=== PATIENT | female | born 1950 | race Caucasian/White ===

== ENCOUNTER 2016-12-28 18:11 | Emergency (ER) | payer OTHER ==
[~2016-12-28] VITALS: Ht 172.7 cm; Wt 95.7 kg
[~2016-12-28 18:11] MED LIST: ANTIVERT12.5 MG PO; HYDROCHLOROTH12.5 M1 PO; NORVASC2.5 MG PO; OMEPRAZOLE20 M2 PO; PROZAC20 MG PO; SINGULAIR 10 MG10 M1 PO; ZOFRAN ODT4 MG PO
[2016-12-28] MEDS ORDERED: ENOXAPARIN100 MG/1 M SQ (19:32)
[2016-12-28 20:26] VITALS: BP 180/90
== END 2016-12-28 20:27 | disposition home or self-care (01) ==
LOC: ER 18:11
DX: I82.492 Acute embolism and thrombosis of other specified deep vein of left lower extremity (principal); D68.51 Activated protein C resistance; Z91.14 Patient's other noncompliance with medication regimen; J45.909 Unspecified asthma, uncomplicated; I10 Essential (primary) hypertension

== ENCOUNTER → 2017-01-30 | Outpatient (CLI) | payer OTHER ==
[~2017-01-30] MED LIST changes: +ENOXAPARIN100 MG/1 M SQ
[2017-01-30 08:41] LABS: PROTIME 10.7 Seconds (9.3-11.4)
== END | disposition home or self-care (01) ==
LOC: CAT 07:56
PROVIDERS: Otolaryngology Plastic Surgery within the Head & Neck
DX: K11.8 Other diseases of salivary glands (principal)

== ENCOUNTER → 2017-05-29 | Outpatient (CLI) | payer OTHER ==
[~2017-05-29] VITALS: Ht 170.2 cm; Wt 96.8 kg
[~2017-05-29] MED LIST changes: +AMITRIPTYLINE H25 M2 PO; +MEDROLDOSEPACK PO; +NEURONTIN 300300 M1 PO; +REQUIP0.5 MG PO; +TUMS PO; +TYLENOL EXTRA500 MG PO; +WELLBUTRIN SR150 MG PO; +XARELTO20 MG PO; +ZOLOFT50 MG PO
--- NOTE | ~2017-05-29 | HPC ---
[facility] [place] [address] PAIN MANAGEMENT CONSULTATION Name: ODIN BLACK Room #: REG GILMA Katarzyna#: [id number] Admission: 05/29/17 Attend Phys: Niranjan Nixon MD Discharge: Date of : 50 Report #: [id number] THIS REPORT FOR: //name// CC: Niranjan Kennedy MD DATE OF SERVICE: 05/29/2017 CHIEF COMPLAINT: Pain in the right low back area. FOLLOWUP HISTORY: The patient is a 67-year-old female who has been referred to the pain clinic for evaluation of back pain. She has been having pain and discomfort in the low back area over the last few months, which has worsened. It is in low back area and near the outside of her leg. She has some pain from the lateral thigh down to the lateral portion of her right knee. She has also had some "inside pain" in her inner thigh area. Note that the pain is made worse sometimes with lying down, walking and climbing stairs. She is not sure of anything that makes it better. She states that she has seen an orthopedic doctor and been evaluated with imaging. No significant pathology was found. She rates her pain as an 8/10. She notes that some of the pain radiates from her buttocks down to the posterior portion of her right thigh. Certain activities can be quite problematic. Denies any bowel or bladder dysfunction. Denies any trauma to her back. Denies any past surgery to the area. ALLERGIES: No known drug allergies. MEDICATIONS: Calcium 500 mg Tums chewable, Tylenol Extra Strength 500 mg q. 4 hours p.r.n., Norvasc 2.5 mg daily, Requip 0.5 mg at bedtime, gabapentin she takes 600 mg at bedtime, Xarelto 20 mg daily, Zoloft 30 mg, Wellbutrin SR 150 mg, hydrochlorothiazide 12.5 mg, and Singulair 10 mg. PAST MEDICAL HISTORY: Hypertension; arthritis; asthma; GERD/heart wei; depression; attention deficit disorder; hyperlipidemia; degenerative arthritis, lumbar, right ankle, bilateral knees; menopause; history of DVT, treated with warfarin; and obesity. FAMILY HISTORY: Father, heart disease. Mother, arthritis. Brother, history of bleeding disease. Sister, bleeding disease. Sister, arthritis. Mother, history of bleeding disease. Father, history of anesthetic complications. PAST SURGICAL HISTORY: Tonsillectomy in 1956; breast surgery, bilateral; right intra-articular hip injection with fluoro guidance 12/21/2016; ovarian cystectomy in 1984; knee arthroscopy in 2011; and torn meniscus repair in 2011. SOCIAL HISTORY: She is single, lives alone. No children. [place] [address] PAIN MANAGEMENT CONSULTATION Name: ODIN BLACK GREGORIO Room #: REG CLI [place]#: [id number] Admission: 05/29/17 Attend Phys: Niranjan Nixon MD Discharge: Date of : 50 Report #: [id number] Works for [employer]: turn off the lights. She is a former smoker. Drinks 1-3 alcoholic beverages per week. Tobacco use 1 pack per day, 25 year history, stopped in 1994. REVIEW OF SYSTEMS: Questionnaire. Fatigue/weakness, hearing loss, asthma, varicose veins, depression, and phlebitis. PHYSICAL EXAMINATION: Blood pressure 168/103, pulse 69, respiratory rate 16, room air saturation 98%. Height 5 feet 7 inches, weight 213 pounds. The patient has pain and discomfort in the right posterior superior iliac spine area. Palpation in this area does cause some increased pain and discomfort. The patient has some discomfort in the area of the right tensor fascia dayne area. Palpation in the area of the latissimus dorsi and gluteus reji near the posterior superior iliac spine area cause reproduction of the patient's discomfort. Examination of right hip on 10/06/2016 reveals frontal view obtained of the pelvis as well as frontal spot view of the right hip in the frog leg position. The bony structures were intact and there is no fracture or subluxation. There is sclerosis and mild spurring involving both hip joints. The soft issues are unremarkable. IMPRESSION: 1. No radiologic evidence of acute bony pathology involving the right hip. There are mild arthritic changes involving the hips. 2. Myofascial pain, right posterior superior iliac spine area near the gluteus reji and latissimus dorsi. 3. Asthma. 4. Hypertension. 5. Depression. 6. Attention deficit disorder. 7. Hyperlipidemia. 8. Gastroesophageal reflux disease. 9. Degenerative arthritis, right ankle, bilateral knees. 10. History of deep venous thrombosis, treated with warfarin now, anticoagulated using Xarelto. 11. The patient states that she has Factor V Leiden and is hypercoagulable. RECOMMENDATIONS: We discussed treatment options with the patient. We would proceed with an injection in the trigger point area in the right low back area. We have explained to the patient the need for discontinuing use of Xarelto. Again, we are in the area of the lower spine and should bleeding occur, this could cause some problems. We explained this to the patient that it is standard procedure to stop the Xarelto when injected in areas around the spine. She will follow up with her primary physician and possibly undergo use of Lovenox to bridge her when she stops use of Xarelto. We explained the possible complications of the procedure and the patient elects to proceed. When the patient has undergone appropriate anticoagulation therapy, she will return to [facility] [address] [place] [address] PAIN MANAGEMENT CONSULTATION Name: ODIN BLACK [facility] [id number] Admission: 05/29/17 Attend Phys: Niranjan Nixon MD Discharge: Date of : 50 Report #: [id number] the pain clinic for treatment. We would like to thank you for letting us participate in her care. We hope she continues to improve. <ELECTRONICALLY SIGNED> By: Niranjan Nixon MD 05/31/17 0837 [id number] 0233 Niranjan Nixon MD /DANIEL
[2017-05-29 09:07] VITALS: BP 168/103
== END ==
LOC: PAIN 07:03
DX: M17.0 Bilateral primary osteoarthritis of knee (principal); M19.90 Unspecified osteoarthritis, unspecified site; I10 Essential (primary) hypertension; E78.5 Hyperlipidemia, unspecified

== ENCOUNTER → 2017-06-28 | Outpatient (CLI) | payer OTHER ==
[~2017-06-28] VITALS: Ht 177.8 cm; Wt 95.9 kg
--- NOTE | ~2017-06-28 | HPC ---
[facility] [place] [address] PAIN MANAGEMENT CONSULTATION Name: ODIN BLACK Room #: REG GILMA Katarzyna#: [id number] Admission: 06/28/17 Attend Phys: Niranjan Nixon MD Discharge: Date of : 50 Report #: [id number] THIS REPORT FOR: //name// CC: Niranjan Kennedy DATE OF SERVICE: 06/28/2017 The patient is on a blood thinning mediation and we would like to have her off her medication for the least amount of time. FOLLOWUP COMPLAINT: "The pain in the middle of my back improved. Still having some pain in the buttocks and joint. My doctor told me it was my SI joint." FOLLOWUP HISTORY: The patient is a 67-year-old female who has been seen in the pain clinic because of pain and discomfort. At the last visit, she complained of pain and discomfort in the right posterior superior iliac spine area. A trigger point was noted. This area was injected with local anesthetic and steroid. She states that pain has resolved. She has a second pain in the low back area. She notes that there is pain and discomfort with certain movements. If she lowers her left leg to get out of bed, she notes pain and discomfort in the right mid portion of her back. She also has some pain and discomfort around the lateral portion of her leg with some pain down the lateral side to the level of knee. It does not go lower than the knee area. Notes some difficulty sleeping on her right side because of pain and discomfort in the hip area. PHYSICAL EXAMINATION: Blood pressure 144/69, pulse 60, respiratory rate 18, room air saturation 97%. Height 5 feet 10 inches, weight 211 pounds, BMI is 30. The patient has pain and discomfort with stress on the left SI joint. Positive for Jus's maneuver, increased pain with letting the right leg hanging in a dependent position as well as the left leg hanging in a dependent position. IMPRESSION: 1. Asthma. 2. Hypertension. 3. Depression. 4. Hyperlipidemia. 5. Gastroesophageal reflux. 6. Degenerative arthritis with right ankle pain and bilateral knee pain. 7. History of deep venous thrombosis, treated with warfarin; now using Xarelto. The patient states that she suffers from factor V Leiden and is hypercoagulable. [address] [address] PAIN MANAGEMENT CONSULTATION Name: ODIN BLACK GREGORIO Room #: REG [facility].#: [id number] Admission: 06/28/17 Attend Phys: Niranjan Nixon MD Discharge: Date of : 50 Report #: [id number] RECOMMENDATIONS: We discussed the treatment options with the patient. She will discontinue use of the Xarelto. She will then transition to Lovenox. She will follow up in the pain clinic at which time she will receive an SI joint injection for pain and discomfort secondary to SI joint dysfunction. Risks and benefits of the procedure were explained to the patient and she will follow up in the near future. We would like to thank you for letting us participate in her care. We hope she continues to improve. <ELECTRONICALLY SIGNED> By: Niranjan Nixon MD 07/04/17 0902 [id number] [id number] Niranjan Nixon MD /PMT
[2017-06-28 08:16] VITALS: BP 144/69
== END ==
LOC: PAIN 06:39
DX: M17.0 Bilateral primary osteoarthritis of knee (principal); M25.561 Pain in right knee; I10 Essential (primary) hypertension; E78.5 Hyperlipidemia, unspecified; J45.909 Unspecified asthma, uncomplicated; K21.9 Gastro-esophageal reflux disease without esophagitis; F32.9 Major depressive disorder, single episode, unspecified; Z86.718 Personal history of other venous thrombosis and embolism

== ENCOUNTER → 2017-08-09 | Outpatient (CLI) | payer OTHER ==
[~2017-08-09] VITALS: Ht 177.8 cm; Wt 96.9 kg
[~2017-08-09] MED LIST changes: +ENOXAPARIN100 MG/11 SUBQ
--- NOTE | ~2017-08-09 | HPC ---
[facility] [place] [address] PAIN MANAGEMENT CONSULTATION Name: ODIN BLACK Room #: REG GILMA Katarzyna#: [id number] Admission: 08/09/17 Attend Phys: Niranjan Nixon MD Discharge: Date of : 50 Report #: [id number] THIS REPORT FOR: //name// CC: Niranjan Kennedy MD DATE OF SERVICE: 08/09/2017 FOLLOWUP COMPLAINT: Pain in the right buttock, right thigh and some pain down in the ankle. FOLLOWUP HISTORY: The patient is a 67-year-old female who has been seen in the pain clinic in the past because of back pain. She did suffer from right sacroiliitis. She underwent a SI joint injection in June. She has noted a resolution of that pain and discomfort. At this juncture, she is having pain and discomfort involving her right hip area. Lying on the affected side is painful. She notes that pain radiates down the right side of her leg and notes that pressure on the left side is painful. It is rated as a 6-7. She is unable to do certain activities because of this pain. She describes it as constant and throbbing. Lying on it is very painful. Walking can be problematic. Going up and down stairs can be helpful. She denies any new trauma. She denies any falling. Denies having had surgery on her hip. Denies any trauma or heavy lifting. ALLERGIES: No known drug allergies. MEDICATIONS: Lovenox subq., calcium 500 mg, Tums, Tylenol Extra Strength 500 mg, Norvasc 2.5 mg, Requip 0.5 mg at bedtime, gabapentin 600 mg total at bedtime, Xarelto 20 mg daily, Zoloft 50 mg, Wellbutrin-SR 150 mg b.i.d., hydrochlorothiazide 12.5 mg, Singulair 10 mg. PHYSICAL EXAMINATION: HEENT: Unchanged and unremarkable. CHEST: Clear to auscultation. HEART: Regular rate. ABDOMEN: Nontender. BACK: Exam is unremarkable with no step-offs. The patient has some pain and discomfort in the right and left L5-S1 and L4-L5 paraspinous muscle areas. LOWER EXTREMITIES: The patient walks with an antalgic gait. Complains of pain and discomfort in the right hip area. Palpation in the right greater trochanteric area reproduces a significant component of her pain with pain radiating down into the lateral portion of her leg into the level of the knee, which she has been complaining of. She is unable to lie comfortably on the right side secondary to increased pain and discomfort. Muscle strength is judged to be 5/5 in the major muscle groups of lower extremity, but the patient [address] [address] PAIN MANAGEMENT CONSULTATION Name: ODIN BLACK Room #: REG CL Katarzyna#: [id number] Admission: 08/09/17 Attend Phys: Niranjan Nixon MD Discharge: Date of : 50 Report #: [id number] does break and give way on the right side secondary to pain and discomfort with pressure movement and range of motion of the limb. IMPRESSION: 1. Right greater trochanteric bursitis. 2. Improved right sacroiliac joint dysfunction. 3. Asthma. 4. Hypertension. 5. Depression. 6. Hyperlipidemia. 7. Gastroesophageal reflux. 8. Degenerative arthritis with right ankle and bilateral knee pain history. 9. History of deep venous thrombosis, treated with warfarin. The patient now is on Xarelto. She has stopped taking the Xarelto and has used Lovenox as a bridge. Family has probable factor V Leiden hypercoagulable state. RECOMMENDATIONS: We discussed treatment options with the patient. Risks and benefits of an injection were reviewed. Possible complication of the procedure were discussed. Possibility which could include infection, increased bleeding, worsening of pain and infection were discussed and the patient elects to proceed. PROCEDURE NOTE: The patient was placed in the left lateral decubitus position. The right greater trochanteric area was sterilely prepped with a chlorhexidine solution and allowed to dry. The 25-gauge needle was then advanced to the area of the right greater trochanteric bursa. A total of 80 mg Depo-Medrol, 10 mL of 0.5% bupivacaine was injected. The patient tolerated the procedure well, it was ongoing. There were no complications. Her pain decreased to 4 at the time of discharge. She will call us if she has any problems with her medications. She will resume her Xarelto medication. <ELECTRONICALLY SIGNED> By: Niranjan Nixon MD 08/30/17 1332 0849 1242 Niranjan Nixon MD /DANIEL
[2017-08-09 09:12] VITALS: BP 171/90
== END | disposition home or self-care (01) ==
LOC: PAIN 06:53
DX: M70.61 Trochanteric bursitis, right hip (principal); M53.3 Sacrococcygeal disorders, not elsewhere classified; J45.909 Unspecified asthma, uncomplicated; I10 Essential (primary) hypertension; E78.5 Hyperlipidemia, unspecified; F32.89 Other specified depressive episodes; K21.9 Gastro-esophageal reflux disease without esophagitis; M19.071 Primary osteoarthritis, right ankle and foot; Z86.718 Personal history of other venous thrombosis and embolism; Z79.01 Long term (current) use of anticoagulants; Z79.899 Other long term (current) drug therapy; Z98.890 Other specified postprocedural states

== ENCOUNTER → 2018-10-01 | Outpatient (CLI) | payer OTHER ==
[~2018-10-01] VITALS: Ht 177.8 cm; Wt 96.3 kg
[~2018-10-01] MED LIST changes: +VYVANSE60 MG PO
--- NOTE | ~2018-10-01 | HPC ---
[facility] [address] [address] PAIN MANAGEMENT CONSULTATION Name: ODIN BLACK Room #: REG GONZALEZ Katarzyna#: [id number] Admission: 10/01/18 ������������������ Attend Phys: Niranjan Nixon MD Discharge: ������������������ Date of : 50 Report #: [id number] THIS REPORT FOR: //name// CC: Niranjan Kennedy DATE OF SERVICE: 10/01/2018 CHIEF COMPLAINT: Pain in the left neck and shoulder area. HISTORY: The patient is a 68-year-old female, who has been seen in the pain clinic because of chronic pain in her back. At this juncture, she is experiencing pain in the upper neck area on the left. She notes pain in the trapezius area as well as pain in the occipital area. Palpation in these areas can reproduce pain and discomfort which she has been experiencing. She rates her pain today as a 8-9/10. She notes that when she is moving her neck, there is pain and soreness, left side is more problematic than the right. She notes it is painful to touch in some "hot spot areas." She notes that the pain is exacerbated by lying on the left side. She has some problems with driving, sleeping, and sitting. She has noted some improvement with chiropractic treatment. She has noted improvement with warm herbal treatments to her shoulder and warm wraps. CURRENT MEDICATIONS: Lovenox subcutaneous, calcium 500 mg, Tums, Tylenol Extra Strength 500 mg, Norvasc 2.5 mg, Requip 0.5 mg at bedtime, gabapentin 600 mg total at bedtime, Xarelto 20 mg daily, Zoloft 5 mg, Wellbutrin-SR 150 mg b.i.d., hydrochlorothiazide 12.5 mg, and Singulair 10 mg. ALLERGIES: No known drug allergies. PAIN CLINIC ASSESSMENT AND PQRS: 1. History of osteoarthritis involving both knees, both shoulders, left foot, bilateral hands, neck, and spine. The patient is not being treated for rheumatoid arthritis. 2. Pain intensity is 8-9/10 depending on the activity. 3. Fall risk. The patient has not fallen in the last 3 months. 4. Blood thinner. The patient is on Xarelto and has stopped this. She was using a injection of Lovenox to bridge. 5. History of hypertension. The patient is being treated for hypertension. 6. Opioids greater than 6 weeks. 7. Risk assessment tool, opioids low risk. 8. Functional assessment tool. 9. Recreational drug use. The patient denies use of recreational drugs. 10. Tobacco: The patient denies use of tobacco. 11. Alcoholic beverages. The [place] [address] PAIN MANAGEMENT CONSULTATION Name: ODIN BLACK GREGORIO Room #: REG CLJeanette Colón#: [id number] Admission: 10/01/18 ������������������ Attend Phys: Niranjan Nixon MD Discharge: ������������������ Date of : 50 Report #: [id number] PHYSICAL EXAMINATION: GENERAL: The patient is a well-developed, well-nourished white female. She appears her stated age. She is alert and oriented x 3. Her affect is appropriate. Speech is fluent. Height is 5 feet 10 inches, weight is 212 pounds, and BMI is 30.5. VITAL SIGNS: Blood pressure is 111/72, pulse is 70, respiratory rate is 16, and room air saturation is 98%. HEENT: Normocephalic, atraumatic. Extraocular eye muscles intact. Sclerae nonicteric. Mucous membranes are moist. The patient has some pain and discomfort in the left occipital area. Palpation in this area does reproduce a significant component of her pain. Pain is also reproduced at a trigger point in the left trapezius area. Palpation in this area does reproduce pain and discomfort in the shoulder and neck area, which she has been experiencing, worsening with movement and rotation and extension of her neck. HEART: Regular. ABDOMEN: Nontender. Bowel sounds present. EXTREMITIES: Upper extremity muscle strength is judged to be 5/5 on the right and 5-/5 on the left. Some increased pain and discomfort in the shoulder area. Lower extremity muscle strength is judged to be 5-/5 for the lower extremities. IMPRESSION: 1. Occipital neuralgia, left. 2. Trigger point/myofascial pain, the left trapezius. 3. Asthma. 4. Hypertension. 5. Depression. 6. Hyperlipidemia. 7. Gastroesophageal reflux. 8. Degenerative arthritis, right ankle and bilateral knee history. 9. Deep venous thrombosis history, treated with warfarin in the past and now treated with Xarelto. 10. History of Factor V Leiden/hypercoagulable state. RECOMMENDATIONS: We have discussed treatment options with the patient. Risks and benefits of a trigger point injection to the left trapezius area, which could cause a pneumothorax should we get into the thoracic area. Also, possible nerve irritation and bleeding in the occipital area and injection in this area. The patient understands and elects to proceed. PROCEDURE NOTE: The patient was placed in the sitting position. The left trapezius area was sterilely prepped with a Betadine solution. A 25-gauge needle was then advanced into the area of discomfort. The patient states that this did reproduce her discomfort. Aspiration was negative. A total of 40 mg triamcinolone was injected. A total of 8 mL of 0.25% bupivacaine was injected. The patient tolerated well. The patient was then placed in the prone position. The occipital area was sterilely prepped with a chlorhexidine solution and [facility] [address] [place] [address] PAIN MANAGEMENT CONSULTATION Name: ODIN BLACK Room #: REG [facility].#: [id number] Admission: 10/01/18 ������������������ Attend Phys: Niranjan Nixon MD Discharge: ������������������ Date of : 50 Report #: [id number] allowed to dry. The occipital nerve was palpated. Aspiration in the area of the occipital was negative. The patient states that this did reproduce her discomfort. A total of 40 mg of triamcinolone and 8 mL of 0.25% bupivacaine was injected. The patient tolerated the procedure well. Her pain decreased from 8-9-3 at the time of discharge. She will follow up in the future as needed. We would like to thank you for letting us to participate in her care. We hope she continues to improve. ��������������������������������������������� ���������������������������������������� By: ��������������������������������������������� 1456 0107 Niranjan Nixon MD /DANIEL
[2018-10-01 13:28] VITALS: BP 111/72
--- NOTE | 2018-10-01 13:47 | NUR ---
Pain Clinic Assessment: 1. History of Osteoarthritis: B/L KNEES B/L SHOULDERS LEFT FOOT B/L HANDS NECK/SPINE History of Rheumatoid Arthritis: NONE 2. Height: 5 ft. 10 in. 177.8 cm. Weight: 212.4 lb. oz. 96.344 kg. Patient's BMI: 30.5 3. Vital Signs: BP: 111/72 Pulse: 70 Resp: 16 Temp: 02 Sat: 98 ECG Mon: 4. Pain Intensity: 8-9 5. Fall Risk: Dizziness: N Needs help standing or walking: N Fallen in the last 3 months: N Fall risk comments: 6. Patient on Blood Thinner: XARELTO 7. History of Hypertension: Y 8. Opioid Therapy greater than 6 weeks: N Opiate Contract Signed: 9. Risk Assessment Tool Provided: Opioid Risk Tool 10. Functional Assessment Tool: 11. Recreational Drug Use: Never Drug Type: Tobacco Use: Never Smoker Tobacco Type: Amount or Packs/day: How Many Years: Alcohol Use: No Frequency: Quant:
== END | disposition home or self-care (01) ==
LOC: PAIN 07:06
DX: M79.18 Myalgia, other site (principal); M54.81 Occipital neuralgia; G89.29 Other chronic pain; I10 Essential (primary) hypertension; J45.909 Unspecified asthma, uncomplicated; F32.9 Major depressive disorder, single episode, unspecified; E78.5 Hyperlipidemia, unspecified; K21.9 Gastro-esophageal reflux disease without esophagitis; M19.90 Unspecified osteoarthritis, unspecified site; Z86.718 Personal history of other venous thrombosis and embolism; Z79.01 Long term (current) use of anticoagulants; Z79.899 Other long term (current) drug therapy; Z98.890 Other specified postprocedural states; Z87.891 Personal history of nicotine dependence

== ENCOUNTER 2018-12-23 09:14 | Emergency (ER) | payer OTHER ==
[~2018-12-23] VITALS: Ht 170.2 cm; Wt 90.7 kg
[2018-12-23 09:48] LABS: ABSOLUTE NEUTROPHILS 12.6 thou/uL (1.4-8.2); BASOPHILS 0.2 % (0.0-2.0); EOSINOPHILS 0.1 % (0.0-3.0); HEMATOCRIT 40.3 % (37.0-47.0); HEMOGLOBIN 13.4 gm/dL (12.0-15.0); LYMPHOCYTES 6.3 % (24.0-44.0); MCH 28.1 pg (26.0-34.0); MCHC 33.3 g/dL (28.0-37.0); MCV 84.2 fL (80.0-100.0); MONOCYTES 3.9 % (1.0-8.0); PLATELET COUNT 268 thou/uL (150-400); POLYS 89.5 % (36.0-66.0); RBC 4.78 mil/uL (4.20-5.00); RDW 13.7 % (10.5-14.5)
[2018-12-23 09:55] LABS: ANION GAP 9 mmol/L (7-16); BUN 36 mg/dL (7-18); CALCIUM 9.6 mg/dL (8.5-10.1); CHLORIDE 101 mmol/L (98-107); CO2 29 mmol/L (21-32); GLUCOSE 108 mg/dL (74-106); POTASSIUM 4.3 mmol/L (3.5-5.1); SODIUM 139 mmol/L (136-145)
[2018-12-23 09:59] LABS: APTT 26.6 Seconds (24.5-32.8); PROTIME 10.7 Seconds (9.3-11.4)
[2018-12-23 10:06] LABS: ALBUMIN 3.7 g/dL (3.4-5.0); MAGNESIUM 2.4 mg/dL (1.8-2.4); SGOT 18 U/L (15-37); SGPT 37 U/L (30-65); TOTAL BILIRUBIN 0.3 mg/dL (<0.1-1.0); TOTAL PROTEIN 7.6 g/dL (6.4-8.2); TROPONIN-I <0.06 ng/mL (<0.06)
[2018-12-23 10:09] LABS: D-DIMER 0.43 ug/mLFEU (0.19-0.50)
[2018-12-23 11:05] VITALS: BP 124/65
--- NOTE | 2018-12-24 08:09 | EKG ---
[address] [address] ELECTROCARDIOGRAM REPORT Name: ODIN BLACK GREGORIO Room #: DEP Katarzyna#: [id number] ������������������ Admission: 12/23/18 ������������������ Attend Phys: Discharge: 12/23/18 ������������������ Date of : 50 Report #: [id number] ����������������������������������������������������������������� [id number] THIS REPORT FOR: //name// [facility] ED Test Date: 2018-12-23 Test Time: 09:39:25 Pat Name: ODIN BLACK Department: Room: Gender: F Flooring Mechanic: BIMAL : 1950 Requested By: Cesar Anton Order Number: [id number] MD: Perico Conway Measurements Intervals [place] Rate: 65 P: 56 OR: 160 QRS: -24 QRSD: 90 T: 21 QT: 401 QTc: 417 Interpretive Statements Sinus rhythm LVH by voltage Inferior infarct, old No previous ECG available for comparison Electronically Signed On 12-24-2018 8:09:29 CDT by Perico Conwya [email or web address] ��������������������������������������������� <ELECTRONICALLY SIGNED> ���������������������������������������� By: Perico Conway MD ��������������������������������������������� 12/24/18 0809 0939 09 MD BRIAN Santos
== END 2018-12-23 11:05 | disposition home or self-care (01) ==
LOC: ER 09:14
PROVIDERS: Emergency Medicine
DX: J45.909 Unspecified asthma, uncomplicated (principal); J20.9 Acute bronchitis, unspecified; R04.0 Epistaxis; Z79.01 Long term (current) use of anticoagulants; Z86.718 Personal history of other venous thrombosis and embolism

== ENCOUNTER → 2021-03-01 | Outpatient (CLI) | payer OTHER ==
[~2021-03-01] VITALS: Ht 177.8 cm; Wt 105.3 kg
[~2021-03-01] MED LIST changes: +TRAMADOL 50 MG50 MG PO
[2021-03-01 11:33] VITALS: BP 131/79
--- NOTE | 2021-03-01 11:48 | NUR ---
Pain Clinic Assessment: 1. History of Osteoarthritis: B/L KNEES B/L SHOULDERS LEFT FOOT B/L HANDS NECK/SPINE History of Rheumatoid Arthritis: NONE 2. Height: 5 ft. 10 in. 177.8 cm. Weight: 232.2 lb. oz. 105.325 kg. Patient's BMI: 33.3 3. Vital Signs: BP: 131/79 Pulse: 88 Resp: 16 Temp: 02 Sat: 98 ECG Mon: 4. Pain Intensity: 3 5. Fall Risk: Dizziness: N Needs help standing or walking: N Fallen in the last 3 months: N Fall risk comments: 6. Patient on Blood Thinner: XARELTO 7. History of Hypertension: Y 8. Opioid Therapy greater than 6 weeks: N Opiate Contract Signed: 9. Risk Assessment Tool Provided: Opioid Risk Tool 10. Functional Assessment Tool: 11. Recreational Drug Use: Never Drug Type: Tobacco Use: Never Smoker Tobacco Type: Amount or Packs/day: How Many Years: Alcohol Use: Yes Frequency: Weekly Quant: 1
== END ==
LOC: PAIN 07:06
PROVIDERS: ATTEND Anesthesiology Pain Medicine
DX: M25.561 Pain in right knee (principal); M25.562 Pain in left knee; M25.511 Pain in right shoulder; M25.512 Pain in left shoulder; M19.90 Unspecified osteoarthritis, unspecified site; M06.9 Rheumatoid arthritis, unspecified; M79.672 Pain in left foot; I10 Essential (primary) hypertension; Z79.899 Other long term (current) drug therapy; Z79.891 Long term (current) use of opiate analgesic

== ENCOUNTER → 2021-03-10 | Outpatient (CLI) | payer OTHER ==
[~2021-03-10] VITALS: Ht 177.8 cm; Wt 104.3 kg
--- NOTE | ~2021-03-10 | HPC ---
[facility] [place] [address] PAIN MANAGEMENT CONSULTATION Name: ODIN BLACK Room #: REG GILMA Xiong.#: [id number] Admission: 03/10/21 Attend Phys: Niranjan Nixon MD Discharge: Date of : 50 Report #: [id number] THIS REPORT FOR: cc: Piter Kennedy MD,Niranjan Ross MD, MD ~ cc: Piter Kennedy MD DATE OF SERVICE: 03/10/2021 CHIEF COMPLAINT: Low back pain. Returned for an injection. HISTORY OF PRESENT ILLNESS: The patient is a 70-year-old female who has been seen in the pain clinic. In the past, she suffers from neck and shoulder pain. She returns today with pain and discomfort in her lower back. Activities of daily living have become more problematic. Driving is problematic. This discomfort affects her sleep. She described it as a tender, aching, pulling discomfort. She rates the pain as 10/10 with activity. She has undergone chiropractic treatment in the past with some benefit. She also suffers from pain in her knees. She has a history of factor V Leiden hypercoagulability. She is on Xarelto. She has stopped taking that medication. MEDICATIONS: See chart. ALLERGIES: No known drug allergies. SOCIAL HISTORY: Denies use of tobacco. Uses alcohol occasionally. PHYSICAL EXAMINATION: VITAL SIGNS: Blood pressure 150/84, pulse 81, respiratory rate 17, room air saturation is 97%. EXTREMITIES: Upper extremity, the patient complains of some bilateral knee and bilateral shoulder pain, has left foot pain, has bilateral pain in the neck and pain in the spine. She is not being treated for rheumatoid arthritis. Pain intensity of 10/10 with activity. The patient has stopped her Xarelto. She is being treated for hypertension. SPINE: The patient has pain and discomfort in the left and right posterior superior iliac spine areas. Palpation of these areas reproduced the pain and discomfort she has been experiencing. GENERAL: She is a well-developed, well-nourished, somewhat obese white female. Appeared her stated age. HEENT: Normocephalic, atraumatic. Extraocular eye muscles intact. Sclerae nonicteric. The patient is wearing facial covering. NECK: Without adenopathy or JVD. HEART: Regular rate. LUNGS: Clear to auscultation. ABDOMEN: Nontender. [address] [address] PAIN MANAGEMENT CONSULTATION Name: ODIN BLACK Room #: REG CLI [facility]#: [id number] Admission: 03/10/21 Attend Phys: Niranjan Nixon MD Discharge: Date of : 50 Report #: [id number] MUSCULOSKELETAL: The patient has pain and discomfort in the lower portion of the back as described above. IMPRESSION: 1. Myofascial pain, left and right low back area. 2. History of occipital neuralgia, left side -- stable. 3. Asthma. 4. Hypertension. 5. Depression. 6. Hyperlipidemia. 7. Gastroesophageal reflux. 8. Degenerative arthritis, right ankle and bilateral knee history. 9. Deep venous thrombosis history, treated with Xarelto. 10. History of factor V Leiden hypercoagulability status. RECOMMENDATIONS: We discussed treatment options with the patient. Risks and benefits of trigger point injections were discussed. They could include but are not limited to infection, worsening of pain, no improvement in pain, nerve damage, bleeding, muscle soreness and the patient elects to proceed. PROCEDURE NOTE: The patient was taken to the procedure area. She was assisted in getting on the table. She had a chair placed to her feet. She sat perpendicular to the table with her feet on the chair. Her back was sterilely prepped with a Betadine solution. The trigger point #1 was located on the left side. Palpation in this area reproduces the discomfort. It was in the area of the left posterior superior iliac spine and gluteus reji and latissimus dorsi. A 25-gauge needle was then advanced to the area of the trigger point. The patient states this reproduced her discomfort. A total of 6 mL of 0.5% bupivacaine and 80 mg Depo-Medrol was injected on the left side. The contralateral right side was treated in a like fashion. This was the #2 trigger point. A 25-gauge needle in the area of the posterior superior iliac spine and gluteus reji and latissimus dorsi was identified. A 25-gauge needle was aspirated. There was no heme. A total of 6 mL of 0.5% bupivacaine and 80 mg Depo-Medrol was injected. The patient tolerated the procedure well. She remained in the pain clinic for an appropriate amount of time. She will follow up in the future as needed. We like to thank you for letting us participate in her care. We hope she continues to improve. By: [id number] Niranjan Nixon MD /giancarlo
[2021-03-10 11:11] VITALS: BP 155/84
== END | disposition home or self-care (01) ==
LOC: PAIN 08:40
PROVIDERS: ATTEND Anesthesiology Pain Medicine
DX: M79.18 Myalgia, other site (principal); I10 Essential (primary) hypertension; F32.9 Major depressive disorder, single episode, unspecified; E78.5 Hyperlipidemia, unspecified; K21.9 Gastro-esophageal reflux disease without esophagitis; J45.909 Unspecified asthma, uncomplicated; M19.90 Unspecified osteoarthritis, unspecified site; Z98.890 Other specified postprocedural states; Z79.899 Other long term (current) drug therapy; Z86.718 Personal history of other venous thrombosis and embolism; Z79.01 Long term (current) use of anticoagulants